=== PATIENT | male | born 1990 | race African-American/Black ===

== ENCOUNTER 2024-10-06 19:31 | Emergency (ER) | payer MEDICAID, OTHER ==
[~2024-10-06] VITALS: Ht 175.3 cm; Wt 67.0 kg
[2024-10-06 19:58] VITALS: BP 126/78; PULSE 91; RESP 20; TEMP 97.5; O2SAT 98
[2024-10-06] MEDS ORDERED: LIDOCAINE HCL/EPINEPHRINE 1%-EPI 1:100,000 10ML VIAL INFIL ONE (20:15)
[2024-10-06] MEDS: TETANUS, DIPHTHERIA, PERTUSSIS VAC/PF 0.5ML (>10YR OLD) IM ONE (21:12)
== END 2024-10-06 22:54 | disposition left against medical advice (07) ==
LOC: ER 19:31
DX: F10.129 Alcohol abuse with intoxication, unspecified (principal); S01.112A Laceration without foreign body of left eyelid and periocular area, initial encounter; Y04.0XXA Assault by unarmed brawl or fight, initial encounter; Y93.89 Activity, other specified; Y92.89 Other specified places as the place of occurrence of the external cause; Y99.8 Other external cause status; Y90.9 Presence of alcohol in blood, level not specified
CPT/HCPCS: 90471; 90715; 99283